=== PATIENT | female | born 1950 | race Caucasian/White ===

== ENCOUNTER 2018-06-01 08:55 | Outpatient (CLI) | payer MEDICARE, BC | END 2018-06-01 08:56 | disposition home or self-care (01) | LOC: BICMAMMO 08:55 | PROVIDERS: ATTEND Internal Medicine | DX: R92.8 Other abnormal and inconclusive findings on diagnostic imaging of breast (principal); Z80.3 Family history of malignant neoplasm of breast | CPT/HCPCS: 76642; 77066; G0279 ==

== ENCOUNTER → 2018-06-15 | Day surgery (SDC) | payer MEDICARE, BC | LOC: BICULT 12:37 | PROVIDERS: ATTEND Internal Medicine | PROC: 0HBU3ZX Excision of Left Breast, Percutaneous Approach, Diagnostic (ICD-10-PCS; principal; 2018-06-15) | DX: N60.22 Fibroadenosis of left breast (principal); Z91.040 Latex allergy status; Z91.048 Other nonmedicinal substance allergy status; Z79.82 Long term (current) use of aspirin; Z79.899 Other long term (current) drug therapy | CPT/HCPCS: 19083; 88305 ==

== ENCOUNTER 2018-09-27 09:29 | Outpatient (CLI) | payer MEDICARE, BC ==
--- NOTE | 2018-09-27 13:02 | ULT ---
RIGHT UPPER QUADRANT ULTRASOUND: History: Calculus of the gallbladder. Epigastric abdominal pain. Technique: Multiplanar grayscale and color doppler images were obtained in a right upper quadrant abd ominal ultrasound. FINDINGS: The liver demonstrates increased echogenicity without intrahepatic ductal dilatation. There is an ane choic lesion in the left lobe of the liver measuring 9 mm in size which may represent a cyst. The gallbladder shows no shadowing stones. There may be a trace amount of sludge in the gallbladder. There is no evidence of gallbladder wall thickening or pericholecystic fluid. The common bile duct is normal measuring 5 mm. The pancreas cannot be seen secondary to bowel gas. There is a hyperechoic lesion emanating from the right kidney measuring 2.0 cm in size without shadowing. There is normal cortical thickness without s hadowing stones or hydronephrosis. The right kidney measures 8.9 cm in length. IMPRESSION: 1. Fatty liver. 2. Left hepatic cyst. 3. Hyperechoic lesion in the right kidney could represent an angiolipoma. POS: DARA
== END 2018-09-27 09:30 | disposition home or self-care (01) ==
LOC: ULT 09:29
PROVIDERS: ATTEND Internal Medicine
DX: K80.20 Calculus of gallbladder without cholecystitis without obstruction (principal); K76.0 Fatty (change of) liver, not elsewhere classified; K76.89 Other specified diseases of liver; N28.9 Disorder of kidney and ureter, unspecified
CPT/HCPCS: 76705

== ENCOUNTER 2019-08-31 10:27 | Outpatient (CLI) | payer MEDICARE, BC ==
--- NOTE | 2019-08-31 11:13 | MMO ---
Bilateral MAMMO Bilat Diag [facility]. CLINICAL HISTORY: Patient is 69 years old and is seen for diagnostic exam. The patient has the following family history of breast cancer: sister and 2 cousin females, MATERNAL. The patient has no personal history of cancer. The patient has a history of left Ultrasound Guided Core Biopsy in May, - benign and right Excisional Biopsy at age 25 - benign. VIEWS: The views performed were: bilateral craniocaudal with tomosynthesis; bilateral mediolateral oblique with tomosynthesis; and bilateral mediolateral with tomosynthesis. FILMS COMPARED: The present examination has been compared to prior imaging studies performed at [facility] on 11/18/2010, 08/19/2012, 05/29/2015 and 06/01/2018. This study has been interpreted with the assistance of computer-aided detection. MAMMOGRAM FINDINGS: The breasts are heterogeneously dense, which could obscure a lesion on mammography. Finding 1: There are stable benign appearing calcifications seen in both breasts. Finding 2: There is a stable round mass with circumscribed margins seen in the right breast. Finding 3: There is a biopsy clip seen in the left breast. There are no suspicious masses, suspicious calcifications, or new areas of architectural distortion. IMPRESSION: THERE IS NO MAMMOGRAPHIC EVIDENCE OF MALIGNANCY. A ROUTINE FOLLOW-UP MAMMOGRAM IN 1 YEAR IS RECOMMENDED. THE RESULTS OF THIS EXAM WERE SENT TO THE PATIENT. ACR BI-RADS Category 2 - Benign finding MAMMOGRAPHY NOTE: 1. A negative mammogram report should not delay a biopsy if a dominant of clinically suspicious mass is present. 2. Approximately 10% to 15% of breast cancers are not detected by mammography. 3. Adenosis and dense breasts may obscure an underlying neoplasm. Reported by: TAMMY BRUSH MD Electonically Signed: [id number]
== END 2019-08-31 10:28 | disposition home or self-care (01) ==
LOC: BICMAMMO 10:27
PROVIDERS: ATTEND Internal Medicine
DX: R92.8 Other abnormal and inconclusive findings on diagnostic imaging of breast (principal); Z80.3 Family history of malignant neoplasm of breast
CPT/HCPCS: 77066; G0279

== ENCOUNTER 2021-09-25 08:59 | Outpatient (CLI) | payer MEDICARE, BC | END 2021-09-25 09:00 | disposition home or self-care (01) | LOC: BICMAMMO 08:59 | PROVIDERS: ATTEND Internal Medicine | DX: Z12.31 Encounter for screening mammogram for malignant neoplasm of breast (principal); Z80.3 Family history of malignant neoplasm of breast; Z91.89 Other specified personal risk factors, not elsewhere classified | CPT/HCPCS: 77063; 77067 ==

== ENCOUNTER 2022-04-07 12:45 | Outpatient (CLI) | payer MEDICARE, BC | END 2022-04-07 12:46 | disposition home or self-care (01) | LOC: ULT 12:45 | PROVIDERS: ATTEND Physician Assistant Medical | DX: R10.11 Right upper quadrant pain (principal); K21.9 Gastro-esophageal reflux disease without esophagitis; K44.9 Diaphragmatic hernia without obstruction or gangrene; R11.0 Nausea; D17.71 Benign lipomatous neoplasm of kidney | CPT/HCPCS: 76705 ==

== ENCOUNTER 2022-06-27 14:26 | Outpatient (CLI) | payer MEDICARE, BC | END 2022-06-27 14:27 | disposition home or self-care (01) | LOC: ULT 14:26 | PROVIDERS: ATTEND Internal Medicine | DX: N18.31 Chronic kidney disease, stage 3a (principal); D17.71 Benign lipomatous neoplasm of kidney | CPT/HCPCS: 76770 ==

== ENCOUNTER 2022-08-28 10:50 | Outpatient (CLI) | payer MEDICARE, BC | END 2022-08-28 10:51 | disposition home or self-care (01) | LOC: BICMAMMO 10:50 | PROVIDERS: ATTEND Internal Medicine Endocrinology, Diabetes & Metabolism | DX: Z13.820 Encounter for screening for osteoporosis (principal); E20.8 Other hypoparathyroidism | CPT/HCPCS: 77080 ==

== ENCOUNTER 2023-01-21 12:50 | Outpatient (CLI) | payer MEDICARE, BC | END 2023-01-21 12:51 | disposition home or self-care (01) | LOC: BICMAMMO 12:50 | PROVIDERS: ATTEND Internal Medicine | DX: Z12.31 Encounter for screening mammogram for malignant neoplasm of breast (principal); Z80.3 Family history of malignant neoplasm of breast; Z91.89 Other specified personal risk factors, not elsewhere classified | CPT/HCPCS: 77063; 77067 ==

== ENCOUNTER 2023-02-24 12:15 | Outpatient (CLI) | payer MEDICARE, BC | END 2023-02-24 12:16 | disposition home or self-care (01) | LOC: MRI 12:15 | PROVIDERS: ATTEND Psychiatry & Neurology Neurology | DX: M54.2 Cervicalgia (principal); G93.89 Other specified disorders of brain; I67.82 Cerebral ischemia | CPT/HCPCS: 70551 ==

== ENCOUNTER 2023-10-02 14:25 | Outpatient (CLI) | payer MEDICARE, BC | END 2023-10-02 14:26 | disposition home or self-care (01) | LOC: BICRAD 14:25 | PROVIDERS: ATTEND Internal Medicine | DX: R05.9 Cough, unspecified (principal); K44.9 Diaphragmatic hernia without obstruction or gangrene | CPT/HCPCS: 71046 ==

== ENCOUNTER 2024-09-02 09:44 | Outpatient (CLI) | payer MEDICARE, BC | END 2024-09-02 09:45 | disposition home or self-care (01) | LOC: ULT 09:44 | PROVIDERS: ATTEND Internal Medicine | DX: D17.71 Benign lipomatous neoplasm of kidney (principal); R10.11 Right upper quadrant pain; N28.1 Cyst of kidney, acquired | CPT/HCPCS: 76705; 76770 ==

== ENCOUNTER 2024-11-02 15:51 | Outpatient (CLI) | payer MEDICARE, BC | END 2024-11-02 15:52 | disposition home or self-care (01) | LOC: BICRAD 15:51 | PROVIDERS: ATTEND Internal Medicine | DX: R05.9 Cough, unspecified (principal) | CPT/HCPCS: 71046 ==